=== PATIENT | female | born 1970 | race Caucasian/White ===

== ENCOUNTER 2017-10-31 11:30 | Outpatient (CLI) | payer BC ==
[2017-10-31 12:56] LABS: Hemoglobin 13.1 g/dL (12.0-16.0); Mean Corpuscular HGB CONC 33.8 g/dL (32.0-36.0); Mean Corpuscular Hemoglobin 29.4 pg (27.0-31.0); Mean Corpuscular Volume 87.1 fl (81.0-99.0); Mean Platelet Volume 7.7 fL (7.4-10.4); Platelet Count 186 thou/uL (130-400); RBC Distribution Width 12.3 % (11.5-14.5); Red Blood Cell (RBC) Count 4.44 mill/uL (4.20-5.40); White Blood Cell (WBC) Count 5.4 thou/uL (4.8-10.8)
[2017-10-31 13:17] LABS: BHCG - Serum Negative (NEGATIVE); Pregs Control Background? CLEAR/WHITE (CLR/WHITE); Pregs Control Bar Appear? YES (CONTROL BAR)
== END 2017-10-31 11:31 | disposition home or self-care (01) ==
LOC: LABBT 11:30
PROVIDERS: ATTEND Obstetrics & Gynecology
DX: Z01.812 Encounter for preprocedural laboratory examination (principal); N83.202 Unspecified ovarian cyst, left side; R10.2 Pelvic and perineal pain
CPT/HCPCS: 84703; 85027; 86850; 86900; 86901

== ENCOUNTER 2017-10-31 11:30 | Inpatient (IN) | payer BC ==
[2017-10-31 12:06] VITALS: BMI 31.6
[2017-11-03] MEDS ORDERED: Famotidine 40 MG/4 ML VIAL SLOW IVP SCH (06:30)
[2017-11-03] MEDS ORDERED: Gabapentin 300 MG CAP PO SCH (06:30)
[2017-11-03] MEDS ORDERED: Fentanyl 250 MCG/5 ML VIAL ONE (06:34)
[2017-11-03] MEDS ORDERED: Midazolam HCl 2 mg/2 ml Vial ONE ×2 (06:34→07:25)
[2017-11-03] MEDS ORDERED: Bupivacaine HCl 0.5%/Epinephrine 1:200,000/PF 30 ml Vial ONE (06:48)
[2017-11-03] MEDS ORDERED: CEFAZOLIN/Water 2 GM/20 ML SYRINGE ONE (06:54)
[2017-11-03] MEDS ORDERED: Promethazine HCl 25 MG/ML VIAL IM PRN ×2 (09:51→10:52)
[2017-11-03] MEDS ORDERED: Promethazine HCl 25 MG/ML VIAL SLOW IVP PRN (09:51)
[2017-11-03] MEDS ORDERED: Ondansetron HCl/PF 4 MG/2 ML Vial IVP PRN ×2 (09:51→10:52)
[2017-11-03] MEDS ORDERED: Fentanyl 100 MCG/2 ML VIAL ONE (10:16)
--- NOTE | 2017-11-03 10:31 | OP ---
DATE OF PROCEDURE: 11/03/2017 PREOPERATIVE DIAGNOSES: 1. Abnormal uterine bleeding. 2. History of endometrial hyperplasia without atypia, status post progesterone treatment with a normal endometrial biopsy. 3. Chronic pelvic pain. 4. Family history of ovarian cancer. POSTOPERATIVE DIAGNOSES: 1. Abnormal uterine bleeding. 2. History of endometrial hyperplasia without atypia, status post progesterone treatment with a normal endometrial biopsy 3. Chronic pelvic pain. 4. Family history of ovarian cancer. PROCEDURE: 1. Robotic-assisted total laparoscopic hysterectomy. 2. Bilateral salpingo-oophorectomy. SURGEON: Milena Delcid D.O. TECHNICAL SYSTEM ANALYST: Mati Lambert D.O. COMPLICATIONS: None. ANESTHESIA: General endotracheal. ESTIMATED BLOOD LOSS: 50 mL. INTRAVENOUS FLUIDS: 900 mL. URINE OUTPUT: 300 mL of clear urine. INDICATIONS FOR THE PROCEDURE: Ms. Isadora Falk is a 47-year-old who presented to clinic in 2015 with complaints of heavy irregular bleeding. The patient had undergone an endometrial biopsy with a diagnosis of endometrial hyperplasia without atypia. She had undergone progesterone treatment using Provera with a subsequent normal endometrial biopsy in 2016. The patient then underwent progesterone therapy for abnormal bleeding subsequently, she had a contraindication to estrogen due to longstanding tobacco use. The patient still had abnormal bleeding with severe cramping pelvic pain and after medical therapy desired to have definitive surgical therapy. She also has an extended family history of ovarian cancer. Therefore, the patient desired to have a bilateral salpingo-oophorectomy at the time of her surgery. She received pre- operative clearance due to long standing tobacco use. PROCEDURE IN DETAIL: The patient was brought to the operating room, she was placed under general anesthesia and placed in dorsal lithotomy position using Ozzie stirrups. She was prepped and draped in a sterile fashion. An official timeout was performed. The patient was given Ancef preoperatively for prophylaxis. The vaginal portion of exam was performed. A single sided speculum was placed into the vagina. The anterior aspect of the cervix was grasped using a single tooth tenaculum. The uterus was sounded to be approximately 7.5 cm. A ANN manipulator was placed using 6 cm length and 4 cm cup was appropriately secured to the active cervix. The Michele catheter was placed and the bladder was drained. Instruments were removed from the vagina. Gloves were changed and attention was turned to the abdominal portion. A umbilical incision was made using the scalpel and the Veress, a 12 mm trocar was placed, the abdomen was insufflated using carbon dioxide, noting a normal pressure. The patient was placed in Trendelenburg position. Intelligence Engineer ports were placed under direct visualization using a #2 robotic 8 mm ports and an 11 mm port on the right aspect of the abdomen. All sites were injected with local anesthesia prior to incision. The robot was then docked to the patient and instruments inserted. The procedure was started on the left aspect of the uterus. The left round ligament was coagulated and transected allowing entrance into the broad ligament. The anterior leaf of the broad ligament was undermined and transected allowing the beginning of the formation of the bladder flap. The left fallopian tube and uteroovarian ligament were coagulated and transected allowing the adnexa to fall laterally. The posterior aspect of the peritoneum was reflected down towards the level of the uterosacral ligament. The uterine vessels were skeletonized on the left side and coagulated; however, not yet transected. Attention was turned over to the right aspect of the uterus where the right round ligament was coagulated and transected also allowing entrance into the broad ligament on the right side. The anterior aspect of the broad ligament was developed creating a bladder flap allowing the bladder to fall inferiorly away from the cervical juncture. The right fallopian tube and right uteroovarian ligament were also coagulated and transected and the posterior leaf of the peritoneum was undermined and developed. The uterine vessels were skeletonized on the right side. Uterine vessels were coagulated multiple times and transected creating good hemostasis. The same was performed on the left aspect, also creating good hemostasis. The colpotomy was begun anteriorly. This was done in a sweeping motion anteriorly around the right aspect of the uterus and then the colpotomy was completed posteriorly. The uterus and cervix were completely removed from the vaginal tissue. The uterus was then grasped and removed vaginally. The attention was turned to the adnexa. The left fallopian tube and ovary were elevated. The left IP ligament was coagulated multiple times and transected allowing removal of the fallopian tube and ovary on the left side. The same was performed on the right aspect. The ovary and fallopian tube were placed in the vagina and removed vaginally as well. The ureters had been evaluated at the beginning of the surgery transperitoneally noting their course and location , also were evaluated after noting peristalsis. The pelvis was then irrigated and cleared of all clot and debris. The vaginal cuff was closed in a running fashion using a Stratus suture and the needle was removed. Again, the pelvis was irrigated and cleared of all clot and debris. There were areas along the left side of the peritoneum which required additional coagulation just for generalized oozing along the peritoneal edge. The gas pressure was decreased and still noted good hemostasis throughout the pelvis. The ON-Q pump was then inserted a few centimeters below the umbilicus and placed into the pelvic cavity. The instruments were then removed. The robot was undocked. The patient was taken out of Trendelenburg position and the abdomen was deflated. Trocars were removed. The 12 mm camera port fascia was reapproximated using 0 Vicryl. The skin incisions were closed using 4-0 Monocryl and Dermabond. The patient tolerated the procedure well. There were no complications. She was extubated without difficulty. All counts were correct x2 and the specimen of uterus, cervix, and bilateral fallopian tubes and ovaries were sent to pathology. [id number]
[2017-11-03] MEDS ORDERED: Ropivacaine 0.2% 550 ML 750 ML NERVE BLCK SCH ×2 (10:45→10:52)
[2017-11-03] MEDS ORDERED: Simethicone Chewable 80 MG TAB PO PRN (10:52)
[2017-11-03] MEDS ORDERED: oxyCODONE ER 10 MG TAB PO PRN (10:52)
[2017-11-03] MEDS ORDERED: Naloxone HCl 2 MG in Sodium Chloride 0.9% 500 ML IV PRN (10:52)
[2017-11-03] MEDS ORDERED: Zolpidem Tartrate 5 MG TAB PO PRN (10:52)
[2017-11-03] MEDS ORDERED: Bisacodyl 10 MG SUPP PR PRN (10:52)
[2017-11-03] MEDS ORDERED: Morphine 5 MG/ML SYRINGE SLOW IVP PRN (10:52)
[2017-11-03] MEDS ORDERED: traMADol HCl 50 MG TAB PO PRN (10:52)
[2017-11-03] MEDS ORDERED: diphenhydrAMINE 25 MG CAP PO PRN (10:52)
[2017-11-03] MEDS ORDERED: Ropivacaine HCl/PF 750 ML in Premix Bag 1 BAG NERVE BLCK SCH (11:15)
[2017-11-03] MEDS: Lactated Ringer's 1,000 ML IV SCH ×2 (11:42→18:33)
[2017-11-03] MEDS: Acetaminophen 500 MG TAB PO SCH ×2 (11:43→18:32)
[2017-11-03] MEDS ORDERED: PHENYLEPHRINE-NS 100 MCG/ML 10 ML SYRINGE ONE (15:49)
[2017-11-03] MEDS ORDERED: ePHEDrine/0.9% NaCl/PF SYRINGE 50 mg/10 ml ONE (15:49)
[2017-11-03] MEDS ORDERED: Ketorolac Tromethamine 30 MG/ML VIAL ONE (15:49)
[2017-11-03] MEDS ORDERED: Ondansetron HCl/PF 4 MG/2 ML Vial ONE (15:49)
[2017-11-03] MEDS ORDERED: Lidocaine 1% PF 5 ML VIAL ONE (15:49)
[2017-11-03] MEDS ORDERED: Dexamethasone 20 MG/5 ML VIAL ONE (15:49)
[2017-11-03] MEDS ORDERED: PROPOFOL 200 MG/20 ML VIAL ONE (15:49)
[2017-11-03] MEDS: Ketorolac Tromethamine 30 MG/ML VIAL IVP SCH ×2 (17:09→22:19)
[2017-11-04] MEDS: Acetaminophen 500 MG TAB PO SCH ×2 (00:16→06:34)
[2017-11-04] MEDS: Ketorolac Tromethamine 30 MG/ML VIAL IVP SCH (04:44)
[2017-11-04 05:50] LABS: #Lymphocytes 1.7 thou/uL (1.20-3.40); #Monocytes 0.7 thou/uL (0.11-0.59); #Neutrophils 7.1 thou/uL (1.40-6.50); %Basophils 0.5 % (0.0-1.0); %Eosinophils 0.2 % (0.0-10.0); %Monocytes 7.5 % (0.0-10.0); %Neutrophils 73.9 % (42.0-75.0); Hemoglobin 12.2 g/dL (12.0-16.0); Mean Corpuscular HGB CONC 34.9 g/dL (32.0-36.0); Mean Corpuscular Hemoglobin 31.5 pg (27.0-31.0); Mean Corpuscular Volume 90.2 fl (81.0-99.0); Mean Platelet Volume 8.5 fL (7.4-10.4); Platelet Count 162 thou/uL (130-400); RBC Distribution Width 12.6 % (11.5-14.5); Red Blood Cell (RBC) Count 3.86 mill/uL (4.20-5.40); White Blood Cell (WBC) Count 9.6 thou/uL (4.8-10.8)
[2017-11-04] MEDS: Lactated Ringer's 1,000 ML IV SCH ×2 (06:22→07:20)
[2017-11-04 06:32] LABS: ALT (SGPT) 8 U/L (8-55); AST (SGOT) 6 U/L (5-34); Albumin 3.9 g/dL (3.5-5.0); Alkaline Phosphatase 48 U/L (40-150); Anion Gap 15 mmol/L (10-20); BUN (Urea Nitrogen) 22 mg/dL (7.0-18.7); Bilirubin, Total 0.2 mg/dL (0.2-1.2); Calc. Creatinine Clearance 112 mL/min (70-130); Calcium 9.2 mg/dL (7.8-10.44); Carbon Dioxide 19 mmol/L (22-29); Chloride 111 mmol/L (98-107); Estimated GFR-MDRD 75; Globulin 2.5 g/dL (2.4-3.5); Glucose 109 mg/dL (70-105); Potassium 4.1 mmol/L (3.5-5.1); Protein, Total 6.4 g/dL (6.0-8.3); Sodium 141 mmol/L (136-145)
[2017-11-04 07:32] VITALS: BP 111/55; TEMP 98.6
[2017-11-04] MEDS ORDERED: HYDROcodone/Acetaminophen 10/325 mg Tablet PO PRN (08:23)
[2017-11-04] MEDS ORDERED: Ibuprofen 800 MG TAB PO PRN (08:23)
--- NOTE | 2017-11-04 08:46 | PRG ---
DATE OF SERVICE: 11/04/2017 HISTORY OF PRESENT ILLNESS: The patient is a 47-year-old female status post robotic assisted total l aparoscopic hysterectomy with bilateral salpingo-oophorectomy postoperative day #1. SUBJECTIVE: The patient reports good pain control with ON-Q pump and a scheduled pain regimen. She denies any nausea or vomiting. The patient is passing flatus, but has not had a bowel movement yet. She reports only minimal vaginal spotting. She is tolerating an oral diet, and voiding without diff iculty. OBJECTIVE: VITAL SIGNS: Reviewed and stable and afebrile. GENERAL: No acute distress. CARDIOVASCULAR: Regular rate. RESPIRATORY: Unlabored breathing. ABDOMEN: Soft, mild distention. Incisions clean, dry, and intact with Dermabond, slight bruising ar ound each incision site noted. Mild tenderness to palpation, as expected postoperatively. ON-Q pump appropriately secured in place. EXTREMITIES: No edema. Negative Homans'. LABORATORY DATA: Hemoglobin is 12.2, hematocrit 34.8, platelets 162, creatinine is 0.82. ASSESSMENT: Postoperative day #1 status post robotic assisted total laparoscopic hysterectomy with b ilateral salpingo-oophorectomy. PLAN: The patient is meeting all requirements for discharge. Plan to discharge home today with foll ow up in clinic in 2 weeks. Instructions for ON-Q pump reviewed with the patient. P.r.n. pain medic ations given, please see discharge summary.
--- NOTE | 2017-11-04 10:47 | DIS ---
DIAGNOSES: 1. Abnormal uterine bleeding. 2. Pelvic pain. 3. History of endometrial hyperplasia without atypia. 4. Family history of ovarian cancer. POSTOPERATIVE DIAGNOSES: Postoperative day #1 status post a robotic assisted total laparoscopic hysterectomy with bilateral salpingo-oophorectomy. ADMISSION AND DISCHARGE PHYSICIAN: Milena Delcid D.O. DATE OF ADMISSION: 11/03/2017 DATE OF DISCHARGE: 11/04/2017 BRIEF HOSPITAL COURSE: Ms. Isadora Falk is a 47-year-old female who was admitted for surgical management of abnormal uterine bleeding and chronic pelvic pain. The patient underwent a robotic assisted total laparoscopic hysterectomy with a bilateral salpingo-oophorectomy without complication. Her postoperative course has been benign. She is meeting all postoperative requirements. Please see progress note from today. Her vitals and laboratory values are within normal limits and she is stable for discharge home. DISCHARGE MEDICATIONS: 1. [place] 10/325 one tablet by mouth every 6 hours p.r.n. pain. 2. Motrin 800 mg 1 tablet by mouth every 8 hours p.r.n. pain. 3. The patient instructed to resume her home medications of Lyrica and instructed to hold diclofenac while taking Motrin. ACTIVITY: Pelvic rest, no heavy lifting, pushing or pulling for 6 weeks. DIET: General. CODE STATUS: Full. STATUS: Good. FOLLOWUP: Follow up in 2 weeks at [facility]
== END 2017-11-04 09:23 | disposition home or self-care (01) | DRG 743 ==
LOC: SURG A 11-03 06:07 → 3SE 11-03 10:46
PROVIDERS: ADMIT Obstetrics & Gynecology; ATTEND Obstetrics & Gynecology
PROC: 0UT98ZZ Resection of Uterus, Via Natural or Artificial Opening Endoscopic (ICD-10-PCS; principal; 2017-11-03)
PROC: 0UT78ZZ Resection of Bilateral Fallopian Tubes, Via Natural or Artificial Opening Endoscopic (ICD-10-PCS; 2017-11-03)
PROC: 0UT28ZZ Resection of Bilateral Ovaries, Via Natural or Artificial Opening Endoscopic (ICD-10-PCS; 2017-11-03)
PROC: 8E0W8CZ Robotic Assisted Procedure of Trunk Region, Via Natural or Artificial Opening Endoscopic (ICD-10-PCS; 2017-11-03)
DX: N85.00 Endometrial hyperplasia, unspecified (principal); N93.8 Other specified abnormal uterine and vaginal bleeding; R10.2 Pelvic and perineal pain; Z80.41 Family history of malignant neoplasm of ovary; Z87.891 Personal history of nicotine dependence
CPT/HCPCS: 36415; 80053; 85025; 88307; A4216; J0131; J0670; J1100; J1885; J2001; J2250; J2405; J2704; J2795; J3010

== ENCOUNTER 2018-01-20 20:30 | Outpatient (CLI) | payer BC | END 2018-01-20 20:31 | disposition home or self-care (01) | LOC: SLEEPLAB 20:30 | PROVIDERS: ATTEND Family Medicine | DX: G47.33 Obstructive sleep apnea (adult) (pediatric) (principal); R53.83 Other fatigue; G25.9 Extrapyramidal and movement disorder, unspecified; R51 Headache; R06.83 Snoring | CPT/HCPCS: 95811 ==

== ENCOUNTER 2018-02-03 08:20 | Outpatient (CLI) | payer BC ==
--- NOTE | 2018-02-03 11:33 | RAD ---
ESOPHAGRAM: HISTORY: Dysphagia. FINDINGS: Air contrast and column barium evaluation shows very small sliding hiatal hernia. No evidence of str icture or obstruction. A 12 mm barium tablet traversed the esophagus without holdup. Very small amount of gastroesophageal reflux. Fluoro time=1.0 minute. IMPRESSION: Very small sliding hiatal hernia with small amount of gastroesophageal reflux. No evidence of obstru ction. POS: [facility]
== END 2018-02-03 08:21 | disposition home or self-care (01) ==
LOC: RAD 08:20
PROVIDERS: ATTEND Internal Medicine
DX: K21.9 Gastro-esophageal reflux disease without esophagitis (principal); K44.9 Diaphragmatic hernia without obstruction or gangrene
CPT/HCPCS: 74220

== ENCOUNTER 2018-04-14 11:02 | Outpatient (CLI) | payer BC | END 2018-04-14 11:03 | disposition home or self-care (01) | LOC: BICMAMMO 11:02 | PROVIDERS: ATTEND Family Medicine | DX: Z12.31 Encounter for screening mammogram for malignant neoplasm of breast (principal); Z80.3 Family history of malignant neoplasm of breast | CPT/HCPCS: 77063; 77067 ==

== ENCOUNTER 2018-04-14 13:47 | Outpatient (CLI) | payer BC ==
--- NOTE | 2018-05-04 15:59 | ULT ---
BILATERAL LOWER EXTREMITY ARTERIAL DOPPLER: Date: 04/14/18 Right femoral, popliteal, posterior tibial and dorsalis waveforms are triphasic with good peak area u nder the curve. Ankle brachial index is 1.13. Left femoral, popliteal, posterior tibial, dorsalis pedis waveforms are triphasic with good peak area under the curve. Ankle brachial index is 1.11. ASSESSMENT: Normal arterial ultrasound.
== END 2018-04-14 13:48 | disposition home or self-care (01) ==
LOC: ULT 13:47
PROVIDERS: ATTEND Family Medicine
DX: R25.2 Cramp and spasm (principal)
CPT/HCPCS: 93922

== ENCOUNTER 2018-06-22 12:07 | Outpatient (CLI) | payer BC ==
--- NOTE | 2018-06-22 13:52 | RAD ---
TWO VIEWS CHEST: Comparison: 09-03-17 History: Dyspnea. FINDINGS: Two views of the chest show normal sized cardiomediastinal silhouette. There is no evidence of consol idation, mass, or pleural effusion. The bones are unremarkable. IMPRESSION: No evidence of acute cardiopulmonary disease. POS: [facility]
== END 2018-06-22 12:08 | disposition home or self-care (01) ==
LOC: RAD 12:07
PROVIDERS: ATTEND Internal Medicine Critical Care Medicine
DX: R06.00 Dyspnea, unspecified (principal)
CPT/HCPCS: 71046

== ENCOUNTER 2018-06-24 14:14 | Outpatient (CLI) | payer BC ==
--- NOTE | 2018-06-24 14:47 | RAD ---
TWO VIEWS RIGHT KNEE: History: Osteoarthritis of the knee, knee pain. FINDINGS: Two views of the right knee shows no evidence of acute fracture or dislocation. No significant degene rative changes are seen. No knee effusions are present. IMPRESSION: No evidence of acute osseous abnormality. POS: [facility]
--- NOTE | 2018-06-24 14:56 | RAD ---
TWO VIEWS LEFT KNEE: Comparison: None. History: Left knee arthritis. FINDINGS: Two views of the left knee shows no evidence of acute fracture or dislocation. No degenerative change s are seen. IMPRESSION: Unremarkable exam. POS: [facility]
--- NOTE | 2018-06-24 16:35 | RAD ---
FIVE VIEWS LUMBOSACRAL SPINE WITH BENDING: Comparison: None. History: Lumbosacral radiculopathy. Low back pain. FINDINGS: AP, lateral, oblique, coned down and flexion/extension views of the lumbosacral spine were performed. The vertebral bodies and intervertebral discs demonstrate normal height and alignment without acute f racture or subluxation. There is mild scoliotic curvature of the spine. Very minimal osteophytes are seen throughout the lumbar spine, more prominent superiorly. Alignment is unchanged with flexion and extension. IMPRESSION: Mild degenerative changes of the lumbar spine with unchanged alignment with bending. POS: [facility]
== END 2018-06-24 14:15 | disposition home or self-care (01) ==
LOC: BICRAD 14:14
PROVIDERS: ATTEND Internal Medicine Rheumatology
DX: M17.0 Bilateral primary osteoarthritis of knee (principal); M47.27 Other spondylosis with radiculopathy, lumbosacral region; M47.816 Spondylosis without myelopathy or radiculopathy, lumbar region
CPT/HCPCS: 72100

== ENCOUNTER 2019-04-13 07:03 | Outpatient (CLI) | payer BC ==
--- NOTE | 2019-04-15 09:03 | PFT ---
PATIENT HISTORY: HEIGHT: 64 IN WEIGHT: 197 SMOKER: YES HOW LON YRS PACKS PER DAY: 1.5 PRODUCTIVE COUGH: NO LUNG DISEASE: PHYSICIAN INTERPRETATION PFT data: 04/13/19 FEV1is severely decreased. FVC moderately decreased. FEV1/FVC ratio is diminished. There is no improvement in spirometry after Bronchodilatation. The Residual Volume is severely elevated. Total lung capacity is normal. DLCO is moderately decreased. 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 Air trapping is present. Gas exchange is moderately reduced. Soda Dialyzer: HEMAL Reimbursement Coordinator: HEMAL HAMPTON
== END 2019-04-13 07:04 | disposition home or self-care (01) ==
LOC: CP 07:03
PROVIDERS: ATTEND Internal Medicine Critical Care Medicine
DX: J45.909 Unspecified asthma, uncomplicated (principal)
CPT/HCPCS: 94060; 94727; 94729

== ENCOUNTER 2019-12-14 12:23 | Outpatient (CLI) | payer BC ==
--- NOTE | 2019-12-14 13:42 | CT ---
CT IAC/TEMPORAL BONES WITHOUT CONTRAST: HISTORY: New right hearing loss, x6 months. Previous cholesteatoma and surgery in 1996. COMPARISON: None. FINDINGS: Visualized brain parenchyma does not demonstrate any acute abnormality. Visualized orbits are intact. Visualized aerodigestive tract is patent. Symmetric fatty attenuation of the visualized parotid glands. Sinuses: Adequate aeration of the visualized paranasal sinuses. Right IAC/temporal bone: The internal auditory canal, cochlea, vestibule and semicircular canals have a normal appearance and configuration. Vestibular aqueduct is not enlarged. There is not a normal-appearing right-sided ossicular chain. There is a diminutive middle year. There is a resection of the right mastoid air cells (wall down). No evidence of a normal-appearing scutum or Prussak's space. Diminutive tegmen tympani and tegmen mastoideum with evidence of complete opacification. Opaci fication and sclerosis of the residual right mastoid air cells. Tympanic membrane is thickened and retracted. External auditory canal is patent. Left IAC/temporal bone: The internal auditory canal, cochlea, vestibule and semicircular canals have appropriate appearance and configuration. Vestibular aqueduct is not enlarged. Ossicular chain is intact. Stapedial footplate is appropriately located. Scutum is sharp. No abnormal hypodensities in P russak's space. Intact tegmen tympani and tegmen mastoideum. Adequate aeration of the left mastoid air cells. Intraosseous septi are preserved. Tympanic membrane is intact. External auditory canal is patent. IMPRESSION: Post surgical changes involving the right temporal bone as described above. Transcribed Date/Time: 12/14/2019 2:31 PM
== END 2019-12-14 12:24 | disposition home or self-care (01) ==
LOC: CT 12:23
PROVIDERS: ATTEND Otolaryngology Plastic Surgery within the Head & Neck
DX: H71.90 Unspecified cholesteatoma, unspecified ear (principal); Z98.890 Other specified postprocedural states
CPT/HCPCS: 70480

== ENCOUNTER 2020-09-26 10:41 | Outpatient (CLI) | payer BC | END 2020-09-26 10:42 | disposition home or self-care (01) | LOC: BICRAD 10:41 | PROVIDERS: ATTEND Internal Medicine Critical Care Medicine | DX: R06.00 Dyspnea, unspecified (principal) | CPT/HCPCS: 71046 ==